=== PATIENT | female | born 1975 | race Caucasian/White ===

== ENCOUNTER 2016-06-23 10:55 | Emergency (ER) | payer MEDICAID ==
[~2016-06-23] VITALS: Ht 162.6 cm; Wt 71.5 kg
[~2016-06-23 10:55] MED LIST: FERR27TA PO; PREN1TAB49 PO
[2016-06-23 11:00] VITALS: Ht 162.6 cm; Wt 71.5 kg
[2016-06-23] MEDS ORDERED: IBUP-1542 PO (14:12)
[2016-06-23] MEDS ORDERED: UDROBDM PO (14:12)
--- NOTE | 2016-06-23 14:18 | ERD ---
ER Documentation Chief Complaint Date/Time DATE: 06/23/16 TIME: 14:15 Chief Complaint Pt with intermittent cough and ST X 3 weeks. HPI This is a 40-year-old female presenting to the emergency department for cough, sore throat and headache 3 weeks. Patient describes cough as dry nonproductive. Denies fever chills. Denies any difficulty breathing, shortness of breath, wheezing, difficult to swallowing or drooling. No nasal congestion, rhinitis or rhinorrhea. Patient also has generalized headache. No diplopia, change in vision or photophobia. Denies this being the worst headache she is ever had. Patient has tried Robitussin and tea at home without relief. ROS All systems reviewed and are negative except as per history of present illness. Medications Home Meds Active Scripts Ibuprofen* (Motrin*) 600 Mg Tab, 600 MG PO Q6, #15 TAB Prov:SUMIT NGUYEN NP 06/23/16 Guaifenesin-Dextromethorphan* (Robitussin* DM) 100MG/10MG/5ML Syrup, 5 ML PO Q4H Y for COUGH, #240 ML Prov:SUMIT NGUYEN NP 06/23/16 Reported Medications Ferrous Sulfate (Iron) 1 Tab Tablet, 1 TAB PO DAILY 10/10/11 Vits W-Ca,Fe,Fa(<1MG) () 1 Tab Tablet, 1 TAB PO 10/09/11 Allergies Allergies: Coded Allergies: cefazolin (Verified Allergy, Unknown, TACHYCARDIA/HYPOXIA/RASHES (? DURAMORPH VS ANCEF), 10/10/11) PT GIVEN ANCEF AND DURAMORPH IN OR, BECAME TACHY/HYPOXIC/HYPOTENSIVE/RASHES. UNCLEAR WHICH MED. RESOVED W/ BENADRYL morphine sulfate (Verified Allergy, Unknown, 10/10/11) PT GIVEN ANCEF AND DURAMORPH IN OR, BECAME TACHY/HYPOXIC/HYPOTENSIVE/RASHES. UNCLEAR WHICH MED. RESOVED W/ BENADRYL. No Known Allergies (Verified Allergy, 10/10/11) PMhx/Soc History of Surgery: Yes (C- SECTION) Anesthesia Reaction: No Hx Neurological Disorder: No Hx Respiratory Disorders: No Hx Cardiac Disorders: No Hx Psychiatric Problems: No Hx Miscellaneous Medical Probl: No Hx Alcohol Use: No Hx Substance Use: No Hx Tobacco Use: No Physical Exam Vitals Vital Signs Date Time Temp Pulse Resp B/P Pulse Ox O2 Delivery O2 Flow Rate FiO2 06/23/16 14:26 76 20 140/68 99 Room Air 06/23/16 11:00 98.7 94 18 174/75 98 Physical Exam Const: No acute distress, alert Head: Atraumatic Eyes: Normal Conjunctiva ENT: Normal External Ears, Nose and Mouth. No erythema or exudate to posterior pharynx. No peritonsillar abscess. TMs normal bilaterally. Neck: Full range of motion..~ No meningismus. Resp: Clear to auscultation bilaterally. No wheezing, rhonchi or crackles. Cardio: Regular rate and rhythm, no murmurs Abd: Soft, non tender, non distended. Normal bowel sounds Skin: No petechiae or rashes Back: No midline or flank tenderness Ext: No cyanosis, or edema Neur: Awake and alert Psych: Normal Mood and Affect Procedures/MDM MDM: This is a 40-year-old female presenting to emergency department for cough, sore throat and headache 3 weeks. Cough is dry nonproductive. No signs or symptoms of respiratory distress. Oxygen saturation 98% on room air. Afebrile upon arrival to ED. Lung exam and ENT exam are unremarkable. Vital signs are stable. Blood pressure elevated in triage at 174/75 mmHg. Upon reassessment, blood pressure reduced. Low suspicion for pneumonia, pleural effusion, pneumothorax or acute AL. Differential diagnosis includes but not limited to URI, influenza, otitis media , otitis externa, asthma exacerbation, croup, bronchitis, bronchiolitis and costochondritis. Patient is appropriate for outpatient management and will be given prescription for guaifenesin DM and ibuprofen. Instructed patient to follow-up with primary care provider in the next 2-3 days for reassessment and additional management. Return to ED for any high fever, chest pain, difficulty breathing, shortness breath, wheezing, vomiting, diarrhea, abdominal pain or any new or worsening symptoms. Patient verbalizes understanding. All questions answered at discharge. Greek translation use during this encounter. Departure Diagnosis: Primary Impression: URI (upper respiratory infection) URI type: unspecified viral URI Qualified Code: J06.9 - Viral upper respiratory tract infection Condition: Stable Patient Instructions: Uri, Viral, No Abx (Adult) Referrals: COMMUNITY CLINICS YOU HAVE RECEIVED A MEDICAL SCREENING EXAM AND THE RESULTS INDICATE THAT YOU DO NOT HAVE A CONDITION THAT REQUIRES URGENT TREATMENT IN THE EMERGENCY DEPARTMENT. FURTHER EVALUATION AND TREATMENT OF YOUR CONDITION CAN WAIT UNTIL YOU ARE SEEN IN YOUR DOCTORS OFFICE WITHIN THE NEXT 1-2 DAYS. IT IS YOUR RESPONSIBILITY TO MAKE AN APPOINTMENT FOR FOLOW-UP CARE. IF YOU HAVE A PRIMARY DOCTOR --you should call your primary doctor and schedule an appointment IF YOU DO NOT HAVE A PRIMARY DOCTOR YOU CAN CALL OUR PHYSICIAN REFERRAL HOTLINE AT IF YOU CAN NOT AFFORD TO SEE A PHYSICIAN YOU CAN CHOSE FROM THE FOLLOWING [facility] [address] [facility]. [facility] [address] [facility] [address] [facility] [facility] [address] [facility]. [facility] [address] [facility]. [facility] [address] [facility]. [facility] YOU HAVE RECEIVED A MEDICAL SCREENING EXAM AND THE RESULTS INDICATE THAT YOU DO NOT HAVE A CONDITION THAT REQUIRES URGENT TREATMENT IN THE EMERGENCY DEPARTMENT. FURTHER EVALUATION AND TREATMENT OF YOUR CONDITION CAN WAIT UNTIL YOU ARE SEEN IN YOUR DOCTORS OFFICE WITHIN THE NEXT 1-2 DAYS. IT IS YOUR RESPONSIBILITY TO MAKE AN APPOINTMENT FOR FOLOW-UP CARE. IF YOU HAVE A PRIMARY DOCTOR --you should call your primary doctor and schedule and appointment IF YOU DO NOT HAVE A PRIMARY DOCTOR YOU CAN CALL OUR PHYSICIAN REFERRAL HOTLINE AT . IF YOU CAN NOT AFFORD TO SEE A PHYSICIAN YOU CAN CHOSE FROM THE FOLLOWING [facility] INSTITUTIONS: [facility] [address] [place] [address] [facility] [address] [place] [address] [facility] + [facility] [address] [place] [address] Additional Instructions: Llame al doctor MAANA y lan micki ROGELIO PARA DENTRO DE 2-3 [address] VALLE.Dgale a la secretaria que nosotros le instruimos hacer esta rogelio.Avise o llame si marcano condicin se empeora antes de la rogelio. Regresa aqui si peor o no mejor. Regresar a ED por fiebre maribel, dolor en el pecho, dificultad para respirar, respiracin entrecortada, sibilancias, vmitos, diarrea, dolor abdominal o cualquier sntoma nuevo o que empeora SUMIT NGUYEN NP June 23, 2016 14:18
[2016-06-23 14:26] VITALS: BP 140/68; PULSE 76; RESP 20
== END 2016-06-23 14:27 | disposition home or self-care (01) ==
LOC: FTE 10:55
DX: J06.9 Acute upper respiratory infection, unspecified (principal)
CPT/HCPCS: 99283